=== PATIENT | female | born 1990 | race Two or more races ===

== ENCOUNTER 2024-12-18 23:25 | Emergency (ER) | payer MEDICAID, SELFPAY ==
[2024-12-19 00:28] VITALS: BP 135/87; PULSE 89; RESP 18; TEMP 37.1; O2SAT 100; BMI 30.6
--- NOTE | 2024-12-19 00:40 | EDNOTE_ITS ---
<Statement entered by Daisy Trevino MD - 12/19/24 18:32> As co-signing physician, I was present and available for consult prn. I concur with the plan and care as documented by the midlevel provider. ED Abdominal Pain RME/HPI General Chief Complaint: Abdominal Pain Stated complaint: Upper Epigastric pain, causing Vomit Time seen by provider: 12/19/24 00:37 Arrival date/time: 12/18/24 23:25 34F with history of asthma presents to ED with 1 day of epigastric pain and N/V. Limitations: no limitations Related Data Home Medications ?Medication ?Instructions ?Recorded ?Confirmed albuterol sulfate 90 mcg/actuation 2 puff inhalation Q 6H PRN Wheezing 04/14/20 04/14/20 aerosol inhaler Previous Rx's ?Medication ?Instructions ?Recorded ibuprofen 800 mg tablet 800 mg PO Q8H PRN pain #30 t abs 01/31/20 prednisone 50 mg tablet 50 mg PO QDAY #5 tabs ondansetron 4 mg disintegrating 4 mg PO Q8H PRN nausea and 12/19/24 tablet vomiting #14 tabs Allergies Allergy/AdvReac Type Severity Reaction Status Date / Time No Known Allergies Allergy Verified 11/02/23 09:58 Review of Systems Review of Systems Systems Reviewed: All systems reviewed, normal except as documented Constitutional Constitutional: Reports system reviewed and no additional complaints, except as documented, Denies fever(s) and Denies headache(s) ENT Ears, Nose, Mouth, and Throat: Denies disequilibrium and Denies headache(s) Cardiovascular Cardiovascular: Reports system reviewed and no additional complaints, except as documented, Denies chest pain and Denies dyspnea Respiratory Respiratory: Reports system reviewed and no additional complaints, except as documented, Denies cough and Denies dyspnea Gastrointestinal Gastrointestinal: Reports system reviewed and no additional complaints, except as documented, Reports as per HPI, Reports abdominal pain, Reports nausea and Reports vomiting Neurologic Neurologic: Reports system reviewed and no additional complaints, except as documented, Denies confusion, Denies disequilibrium and Denies headache(s) Psychiatric Psychiatric: Denies confusion Past Medical History Past Medical History NEUROLOGIC: Negative Neurological Disorders or Seizures CARDIAC: Positive Cardiac Disorders and Hypertension (GESTATIONAL NO MED HAD TAKEN ASPIRIN ONLY); Negative Congestive Heart Failure, Edema, Cellulitis or Varicose Veins RESPIRATORY: Positive Asthma (INHALER USE NEEDED SEASONAL); Negative Chronic Obstructive Pulmonary Disease (COPD), Tuberculosis or Sleep Apnea GASTROINTESTINAL: Negative Gastrointestinal Disorders or Hepatitis GENITOURINARY: Negative Genitourinary Disorders or Renal Disease REPRODUCTIVE: Positive Previous Pregnancies (X3) MUSCULOSKELETAL: Positive Musculoskeletal Disorders and Fractures (LEFT ELBOW HAD SCREWS AND REM AT 2 YRS OLD) ENDOCRINE: Negative Endocrine Disorders, Diabetes Mellitus Type 1 or Diabetes Mellitus Type 2 HEMATOLOGIC: Negative Blood Disorders OTHER HISTORY: Positive Chicken Pox; Negative Hospitalization, Autoimmune Disease, Down Syndrome, Developmental Delay, Shingles, Falls, Blood Transfusions, Blood Transfusion Reaction, Anesthesia Reactions, Organ Transplant, Chemotherapy, Radiation Therapy, Hyperbaric Therapy, MRSA, VRSA, Vancomycin-Resistant Enterococci, Human Immunodeficiency Virus (HIV), Measles, Mumps, Rubella (Azeri Measles), Pertussis, Clostridium Difficile or Cancer Family History FAMILY HISTORY: Positive Family Respiratory Disorders (MOTHER (ASTHMA)), Family Cardiac Disorders (MOTHER,FATHER (HTN)), Family Surgery (FATHER) and Family Anesthesia Reaction (FATHER (HARD TIME TO WAKE UP)); Negative Family Psychiatric Problems, Family Gastrointestinal Problems or Family Cancer Surgical History SURGICAL: Negative Pacemaker, Section or Organ Transplant Social History SMOKING STATUS: Never smoker SUBSTANCE USE: does not use ED Exam General Limitations: Present no limitations General appearance: Present alert and in no apparent distress Head Head exam: Present atraumatic Eye Eye exam: Present normal appearance, PERRL and EOMI ENT ENT exam: Present normal exam, normal oropharynx and mucous membranes moist Neck Neck exam: Present normal inspection, full ROM and trachea midline Chest Chest inspection: Present normal inspection and symmetric chest wall rise Respiratory Respiratory exam: Present normal lung sounds bilaterally Cardiovascular Cardiovascular exam: Present regular rate, normal rhythm and normal heart sounds Abdominal Exam Abdominal exam: Present soft and normal bowel sounds Extremities Exam Extremities exam: Present normal inspection and full ROM Back Exam Back exam: Present normal inspection and full ROM Neurological Exam Neurological exam: Present alert, oriented X3 and CN II-XII intact Psychiatric Psychiatric exam: Present normal affect and normal mood Skin Skin exam: Present warm, dry, intact and normal color Course Quality Measures none Orders Category Date Time Status Famotidine [Pepcid] Med 12/19/24 00:37 Discontinued 40 mg PO X1 ONE Ondansetron Inj [Zofran Inj] Med 12/19/24 01:46 Discontinued 4 mg IM X1 ONE Ondansetron Odt [Zofran Odt] Med 12/19/24 00:37 Discontinued 4 mg PO X1 ONE mg Hyd/Al Hyd/Gunnar Susp [Maalox Susp] Med 12/19/24 00:37 Discontinued 30 ml PO X1 ONE Vital Signs Vital signs: Vital Signs Temperature 98.7 F 12/19/24 00:28 Pulse Rate 89 12/19/24 00:28 Respiratory Rate 18 12/19/24 00:28 Blood Pressure 135/87 H 12/19/24 00:28 Pulse Oximetry (%) 100 12/19/24 00:28 Oxygen Delivery Method Room Air 12/19/24 00:28 O2 at 100% on RA and WNLs Abdominal Pain MDM MDM Narrative MDM Narrative:: 34F with history of asthma presents to ED with 1 day of epigastric pain and N/V. Physical exam reveals no ab tenderness. Patient is afebrile, calm, and alert. GI cocktail improved symptoms. PO challenge passed. Utility Hand given. Patient data External records reviewed:: [facility] previous records Clinical information provided by:: patient Social determinants that could affect healthcare access:: none Patient has the following chronic illnesses:: none How is presenting disease/condition affected by chronic disease/condition?: no chronic disease Evaluation data The following diagnostics were reviewed and interpreted by me:: lab results and other (specify) (none) Lab and/or radiology exams considered but not ordered:: not ordered Interpretation Summary: n/a Medications / Prescriptions Medications or Prescriptions considered but not ordered:: ordered Medication administrations:: Medication Administration History Discontinued Medications Al Hydrox/Mg Hydrox/Simethicone (Mg Hyd/Al Hyd/Gunnar (Maalox Reg) Susp 30 Ml Udc) 30 ml PO X1 ONE Stop: 12/19/24 00:38 Last Admin: 12/19/24 01:13 Dose: 30 ml Documented By: Famotidine (Famotidine 20 Mg Tablet) 40 mg PO X1 ONE Stop: 12/19/24 00:38 Last Admin: 12/19/24 01:13 Dose: 40 mg Documented By: Ondansetron HCl (Ondansetron Odt 4 Mg Tabrap) 4 mg PO X1 ONE; Protocol Stop: 12/19/24 00:38 Last Admin: 12/19/24 00:44 Dose: 4 mg Documented By: Ondansetron HCl (Ondansetron Inj 2 Mg/Ml Inj 2 Ml) 4 mg IM X1 ONE; Protocol Stop: 12/19/24 01:47 Last Admin: 12/19/24 02:06 Dose: 4 mg Documented By: SF above Consultations Consultation(s) initiated? (list below): No Diagnosis Differential diagnosis abdominal pain: abdominal pain, acute appendicitis, calculus of kidney, constipation, diverticulitis, endometriosis, gastroenteritis, pancreatitis, small bowel obstruction and other (gastritis) Most likely diagnosis given after review of the tests above:: gastritis Admission Indicated Admission indicated?: not indicated Admission Request Was there a request for admission?: No Disposition Plan Disposition Plan: Discharge Discharge Attestation Discharge Attestation: The patient and all family members were given an opportunity to ask questions and understood the discharge instructions. Discharge instructions specifically effects, indications for sooner follow up or return to the emergency department, and the expected course of current diagnosis. Patient condition: Stable Discharge Plan Plan Patient Disposition: HOME (Self Care) Discharge Disposition comment: Stable Prescriptions/Referrals Prescriptions/Med Rec: New ondansetron 4 mg tablet,disintegrating 4 mg PO Q8H PRN (Reason: nausea and vomiting) Qty: 14 0RF No Action ibuprofen 800 mg tablet 800 mg PO Q8H PRN (Reason: pain) Qty: 30 0RF albuterol sulfate 90 mcg/actuation Hfa Aerosol Inhaler 2 puff INHALATION Q6H PRN (Reason: Wheezing) prednisone 50 mg tablet 50 mg PO QDAY Qty: 5 0RF Referrals: Anastasia Welsh FNP [Primary Care Provider] - In 1 week Problem List Clinical Impression: Gastritis Patient/Caregiver Discharge Instructions Education Materials: ED Gastritis (Adult) Additional Instructions: Please follow-up with PCP within 24-48 hours and return immediately if symptoms worsen. Can take OTC TUMs and/or Pepcid. Print Language: Khmer Stand Alone Forms: Patient Portal Info Letter BARBARA/IRENE Supervising Physician BARBARA/IRENE Supervising Physician: Dr. Trevino
[2024-12-19] MEDS: ONDANSETRON ODT 4 MG TABRAP PO (00:44)
[2024-12-19] MEDS: FAMOTIDINE 20 MG TABLET 40 MG PO (01:13)
[2024-12-19] MEDS: MG HYD/AL HYD/SIME (Maalox Reg) SUSP 30 ML UDC PO (01:13)
[2024-12-19 01:38] VITALS: BP 124/89; PULSE 90; RESP 18; TEMP 36.7; O2SAT 99
[2024-12-19] MEDS: ONDANSETRON INJ 2 MG/ML INJ 2 ML 4 MG IM (02:06)
== END 2024-12-19 03:08 | disposition home or self-care (01) ==
PROVIDERS: Emergency Provider Emergency Medicine; PCP Registered Nurse Community Health
DX: K29.70 Gastritis, unspecified, without bleeding (principal)
CPT/HCPCS: 96372; 96374; 99284; J2405; Q0162; A9270

== ENCOUNTER 2025-01-28 14:45 | Emergency (ER) | payer MEDICAID, SELFPAY ==
[2025-01-28 14:46] VITALS: BMI 30.4
[2025-01-28 15:34] VITALS: BP 138/93; PULSE 90; RESP 18; TEMP 36.8; O2SAT 99
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
== END 2025-01-28 17:40 | disposition home or self-care (01) ==
LOC: SERX 15:51
PROVIDERS: Emergency Provider Emergency Medicine; PCP Registered Nurse Community Health
DX: M54.50 Low back pain, unspecified (principal); V89.2XXA Person injured in unspecified motor-vehicle accident, traffic, initial encounter; M54.2 Cervicalgia; R20.0 Anesthesia of skin
CPT/HCPCS: 99282